=== PATIENT | female | born 1970 | race Caucasian/White ===

== ENCOUNTER 2017-10-15 18:39 | Emergency (ER) | payer BC ==
[~2017-10-15] VITALS: Ht 162.5 cm; Wt 79.4 kg
[~2017-10-15 18:39] MED LIST: BACTRIM DS 8001 TA1 PO; CLARITIN-D 10 M1 T21 PO; FLONASE 0.05% 121 EA NAS; LISINOPRIL AND1 TA1; LISINOPRIL20 MG PO; PHENERGAN W/ DE30 ML PO; PYRIDIUM200 MG PO
== END 2017-10-15 20:38 | disposition home or self-care (01) ==
LOC: ED 18:39
DX: S93.601A Unspecified sprain of right foot, initial encounter (principal); S93.401A Sprain of unspecified ligament of right ankle, initial encounter; W00.0XXA Fall on same level due to ice and snow, initial encounter; Y93.89 Activity, other specified; Y92.89 Other specified places as the place of occurrence of the external cause; Y99.8 Other external cause status

== ENCOUNTER 2019-06-20 10:24 | Emergency (ER) | payer BC ==
[~2019-06-20] VITALS: Ht 162.5 cm; Wt 80.3 kg
[2019-06-20] MEDS ORDERED: TESSALON PERLE100 M1 PO (12:13)
[2019-06-20] MEDS ORDERED: FLONASE ALLERG9.9 ML NAS (12:13)
== END 2019-06-20 12:19 | disposition home or self-care (01) ==
LOC: ED 10:24
DX: N39.0 Urinary tract infection, site not specified (principal); G43.909 Migraine, unspecified, not intractable, without status migrainosus; Z79.899 Other long term (current) drug therapy

== ENCOUNTER → 2020-08-08 | Outpatient (CLI) | payer BC ==
[~2020-08-08] MED LIST changes: +FLONASE ALLERG9.9 ML NAS; +TESSALON PERLE100 M1 PO
== END | disposition home or self-care (01) ==
LOC: COVID19 16:01
PROVIDERS: ATTEND Family Medicine
DX: U07.1 COVID-19 (principal)